=== PATIENT | female | born 1990 | race Two or more races ===

== ENCOUNTER 2018-03-14 12:24 | Emergency (ER) | payer OTHER ==
[~2018-03-14] VITALS: Ht 160 cm; Wt 74.8 kg
[~2018-03-14 12:24] MED LIST: CEFADROXIL500 MG; CLONAZEPAM0.5 MG; ORPH100T; PYRIDIUM200 MG PO; SMZ-TMP DS 800-1 TAB PO; [UNRECOGNIZED DRUG - OTHER]
[2018-03-14] MEDS ORDERED: CEPHALEXIN500 MG PO (16:26)
[2018-03-14] MEDS ORDERED: URIN D.S. TABL1 EACH PO (16:26)
== END 2018-03-14 16:40 | disposition home or self-care (01) ==
LOC: ER 12:24
DX: N39.0 Urinary tract infection, site not specified (principal); R09.81 Nasal congestion